=== PATIENT | female | born 1970 | race Two or more races ===

== ENCOUNTER → 2024-09-21 | Emergency (ER) | payer OTHER ==
[~2024-09-21] VITALS: Ht 162.6 cm; Wt 76.7 kg
[~2024-09-21] MED LIST: ACETAMINOPHEN 500 MG GEL..CAP PO ONE; ACETAMINOPHEN 500 MG GEL..CAP PO STA; CEFTRIAXONE SODIUM 2,000 MG VIAL IV ONE; CEFTRIAXONE SODIUM 2,000 MG VIAL ONE; GLUMETZA500 MG PO; KETOROLAC TROMETHAMINE 60 MG VIAL IM ONE; PIPERACILLIN/TAZOBACTAM SODIUM 3.375 GM VIAL IV ONE; PIPERACILLIN/TAZOBACTAM SODIUM 3.375 GM VIAL IV SCH; TAMSULOSIN HCL 0.4 MG CAP PO ONE
[2024-09-21 11:29] LABS: HEMATOCRIT 36.1 % (36.0-45.00); HEMOGLOBIN 12.4 g/dL (12.0-15.00); MEAN CELL VOLUME 93.7 fL (80.00-100.00); MEAN CORPUSCULAR HEMOGLOBIN 32.2 pg (27.00-32.0); MEAN CORPUSCULAR HGB CONC 34.3 g/dl (32.0-36.0); PLATELET COUNT 252 K/uL (150-450); RED BLOOD COUNT 3.85 M/uL (4.00-6.00); RED CELL DISTRIBUTION WIDTH 13.4 % (11.5-14.5)
[2024-09-21 12:35] LABS: URINE APPEARANCE Turbid; URINE BILIRRUBIN Negative (NEGATIVE); URINE BLOOD Moderate; URINE COLOR Yellow; URINE GLUCOSE Negative (NEGATIVE); URINE KETONE Negative (NEGATIVE); URINE LEUKOCYTE Large; URINE NITRATE Positive; URINE PROTEIN 30 (NEGATIVE); URINE UROBILINOGEN 0.2 E.U./dl
[2024-09-21 12:38] LABS: URINE EPITHELIAL CELLS 19.3 uL (0.0-38.8); URINE WBC 3670.4 uL (0.0-23.2)
[2024-09-21 12:39] LABS: CALCIUM 9.6 mg/dL (8.5-10.1); CREATININE SERUM 0.9 mg/dL (0.55-1.02)
[2024-09-21 12:56] LABS: URINE BACTERIA > 9821.5 uL (0.0-1933); URINE CRYSTALS NEGATIVE /HPF; URINE MUCUS HEAVY
[2024-09-22 07:57] VITALS: BP 82/59; O2SAT 100
== END | disposition designated cancer center or children's hospital (05) ==
LOC: ER 10:19
PROVIDERS: General Practice
DX: N13.2 Hydronephrosis with renal and ureteral calculous obstruction (principal); N12 Tubulo-interstitial nephritis, not specified as acute or chronic; R10.9 Unspecified abdominal pain
CPT/HCPCS: 36415; 51702; 74176; 96365; 99285; J2543